=== PATIENT | female | born 1955 | race Caucasian/White ===

== ENCOUNTER 2025-04-06 09:45 | Day surgery (SDC) | payer OTHER, SELFPAY ==
[2025-04-05 12:29] VITALS: BMI 25.0
[2025-04-06] VITALS (8 sets, daily range): BP systolic 118–186; BP diastolic 69–91; PULSE 61–73; RESP 10–21; TEMP 36.2–36.4; O2SAT 92–98; BMI 25.4
[2025-04-06] MEDS: BENZOCAINE 20% (Hurricaine) SPRAY 1 DOSE TOP (11:24)
[2025-04-06] MEDS: SODIUM CHLORIDE 0.9% 500 ML 500 ML 20 ML IV (11:25)
[2025-04-06] MEDS: fentaNYL CIT INJ 50 mCg/ML AMP 2ML (ASD USE ONLY) IVP (11:29)
[2025-04-06] MEDS: MIDAZOLAM INJ 1 MG/ML VIAL 2 ML (ASD USE ONLY) 2 MG IVP (11:29)
== END 2025-04-06 12:15 | disposition home or self-care (01) ==
PROVIDERS: PCP Internal Medicine; Referring Provider Specialist; Visit Provider Specialist
PROC: (CPT 43239; principal; 2025-04-06 10:45)
DX: K22.2 Esophageal obstruction (principal); K20.90 Esophagitis, unspecified without bleeding; I10 Essential (primary) hypertension; E78.5 Hyperlipidemia, unspecified; Z79.899 Other long term (current) drug therapy; K29.50 Unspecified chronic gastritis without bleeding
CPT/HCPCS: 43248; 43239; A4649; C1769; J1200; J2250; J3010; J7999; A9270